=== PATIENT | female | born 1990 | race American Indian/Alaskan Native ===

== ENCOUNTER 2016-09-18 14:06 | Emergency (ER) | payer SELFPAY ==
[2016-09-18 14:26] VITALS: BP 129/78
[2016-09-18 15:27] LABS: Bacteria,Urine 2+ /HPF (Negative); Bilirubin,Urine NEG (Negative); Blood,Urine SM (Negative); Ketones,Urine 20 mg/dL (Negative); Leukocyte Esterase,Urine LG (Negative); Mucus,Urine 3+ /HPF; Nitrite,Urine NEG (Negative); Urobilinogen,Urine < 2.0 mg/dL (<2.0)
--- NOTE | 2016-09-18 18:08 | Emergency Department Report ---
ED Headache HPI - General Chief Complaint: Headache Stated Complaint: HEADACHE Time Seen by Provider: 09/18/16 18:06 Source: patient - History of Present Illness Initial Comments: Patient here complaining of headache for the last couple days. She says she took abma-suc-ardmakv medication but it didn't help much. She denies any fever or chills. Denies any nausea or vomiting. Denies any neck pain or stiffness. She said her headache comes and goes right now she doesn't have a headache and she is concerned because she missed her period and should like a test last time she saw her. Was 06/12/2016. Denies any abdominal or back pain. Denies any urinary burning frequency or urgency. Denies any vaginal bleeding or discharge. She denies any fever or chills Timing/Duration: waxing and waning Quality: achy Head Injury Location: frontal Recent Head Trauma: occasional headaches Associated Symptoms: denies: fatigue, facial pain, fever/chills, flushing, loss of consciousness, nausea/vomiting, nasal congestion, nasal drainage, numbness in legs/feet, rash, seizures, sinus infection, stiff neck, vision changes, weakness Allergies/Adverse Reactions: Allergies No Known Allergies Allergy (Verified 09/18/16 14:28) Home Medications: Ambulatory Orders Nitrofurantoin [place]/M-Cryst [Macrobid CAP] 100 mg PO Q12HR #14 capsule 09/18/16 guaiFENesin [Mucinex] 600 mg PO Q12H #10 tab.er.12h 09/18/16 ED Review of Systems ROS: Stated complaint: HEADACHE Other details as noted in HPI Comment: All other systems reviewed and negative Constitutional: denies: chills, fever ENT: denies: ear pain, throat pain, congestion Respiratory: denies: cough, shortness of breath, SOB with exertion, SOB at rest , stridor, wheezing Cardiovascular: denies: chest pain, palpitations, edema, syncope Gastrointestinal: denies: abdominal pain, nausea, vomiting Genitourinary: abnormal menses. denies: urgency, dysuria, frequency, hematuria , discharge, dyspareunia Musculoskeletal: denies: back pain, arthralgia Skin: denies: rash Neurological: denies: headache, numbness, paresthesias, confusion, abnormal gait , vertigo ED Past Medical Hx - Past Medical History Previous Medical History?: No - Surgical History Past Surgical History?: Yes Additional Surgical History: face - Family History Family history: no significant - Social History Smoking Status: Never Smoker Substance Use Type: Alcohol - Medications Home Medications: Home Medications Medication Instructions Recorded Confirmed Last Taken Type Nitrofurantoin [place]/M-Cryst 100 mg PO Q12HR #14 capsule 09/18/16 Unknown Rx [Macrobid CAP] guaiFENesin [Mucinex] 600 mg PO Q12H #10 tab.er.12h 09/18/16 Unknown Rx ED Physical Exam - General Limitations: No Limitations General appearance: alert, in no apparent distress - Head Head exam: Present: atraumatic, normocephalic, normal inspection - Expanded Head Exam Expanded Head exam: Absent: laceration, abrasion, contusion, hematoma, racoon eyes, dallas's sign, general tenderness, tenderness of temporal artery, CSF rhinorrhea , CSF otorrhea - Eye Eye exam: Present: EOMI. Absent: periorbital swelling, periorbital tenderness Pupils: Present: normal accommodation - ENT ENT exam: Present: normal exam, normal orophraynx, mucous membranes moist, normal external ear exam, other (lateral nasal mucosa congested without erythema. No frontal or maxillary sinus tenderness. Clear nasal drainage.). Absent: TM's normal bilaterally (lateral TMs congested without erythema) - Neck Neck exam: Present: normal inspection, full ROM. Absent: tenderness, meningismus, lymphadenopathy - Expanded Neck Exam Expanded Neck exam: Absent: tenderness, midline deformity, anterior neck swelling, tracheal deviation - Respiratory Respiratory exam: Present: normal lung sounds bilaterally. Absent: respiratory distress, chest wall tenderness - Cardiovascular Cardiovascular Exam: Present: regular rate, normal rhythm, normal heart sounds - GI/Abdominal GI/Abdominal exam: Present: soft, normal bowel sounds. Absent: guarding, rebound, rigid - Extremities Exam Extremities exam: Present: normal inspection, full ROM, normal capillary refill. Absent: tenderness, pedal edema, joint swelling, calf tenderness - Back Exam Back exam: Present: normal inspection, full ROM. Absent: tenderness, CVA tenderness (R), CVA tenderness (L), muscle spasm, paraspinal tenderness, vertebral tenderness, rash noted - Neurological Exam Neurological exam: Present: alert, oriented X3, normal gait, reflexes normal. Absent: motor sensory deficit - Expanded Neurological Exam Expanded Neurological exam: Absent: innattentive, memory loss-remote event, memory loss- recent event, ataxia, receptive aphasia, expressive aphasia, total aphasia, tremor, protecting the airway Patient oriented to: Present: person, place, time Speech: Present: fluid speech Cranial nerves: EOM's Intact: Normal, Gag Reflex: Normal, Nystagmus: Normal, Facial Sensation: Normal Cerebellar function: Romberg: Normal Upper motor neuron: Pronator Drift: Normal Sensory exam: Upper Extremity Light Touch: Normal, Upper Extremity Temperature: Normal, UE 2 Point Discrimination: Normal, Lower Extremity Light Touch: Normal, Lower Extremity Temperature: Normal, LE 2 Point Discrimination: Normal Motor strength exam: RUE: 5, LUE: 5, RLE: 5, LLE: 5 DTR: bicep (R): 2+, bicep (L): 2+, tricep (R): 2+, tricep (L): 2+, knee (R): 2+ , knee (L): 2+, ankle (R): 2+, ankle (L): 2+ Best Eye Response (Antony): (4) open spontaneously Best Motor Response ([place]): (6) obeys commands Best Verbal Response ([place]): (5) oriented Antony Total: 15 - Psychiatric Psychiatric exam: Present: normal affect, normal mood - Skin Skin exam: Present: warm, dry, intact, normal color. Absent: rash ED Course Vital Signs 09/18/16 14:24 Temperature 97.8 F Pulse Rate 76 Respiratory 16 Rate Blood Pressure 129/78 O2 Sat by Pulse 100 Oximetry - Reevaluation(s) Reevaluation #1: 09/18/16 18:55 Patient stable in emergency room. She Is able to tolerate oral liquids without any difficulties. She is not having any related problems. I told her that she is and her urine shows that she has some dehydration show she should drink at least 2-3 L of fluid per day. She has no nausea or vomiting. ED Medical Decision Making - Lab Data Lab Results 09/18/16 Range/Units 15:05 Urine Color Yellow (Yellow) Urine Turbidity Cloudy (Clear) Urine pH 5.0 (5.0-7.0) Ur Specific [place] 1.025 (1.003-1.030) Urine Protein 30 mg/dl (Negative) mg/dL Urine Glucose (UA) Neg (Negative) mg/dL Urine Ketones 20 (Negative) mg/dL Urine Blood Sm (Negative) Urine Nitrite Neg (Negative) Ur Reducing Substances Not Reportable Urine Bilirubin Neg (Negative) Urine Ictotest Not Reportable Urine Urobilinogen < 2.0 (<2.0) mg/dL Ur Leukocyte Esterase Lg (Negative) Urine WBC (Auto) 67.0 H (0.0-6.0) /HPF Urine RBC (Auto) 27.0 (0.0-6.0) /HPF U Epithel Cells (Auto) 17.0 H (0-13.0) /HPF Urine Bacteria (Auto) 2+ (Negative) /HPF Urine Mucus 3+ /HPF Urine HCG, Qual Positive A (Negative) - Medical Decision Making ED course: Patient here complaining of headache and nasal congestion and incidental finding for positive and sinus inflammation. also has a urinary tract infection. Pt is not having any abdominal, back pain, urinary frequency urgency or burning. She had reported that she did not have a period since June and ED test was done on her. She denies any vaginal bleeding or discharge. I also patient she will need to follow-up with [facility] doctor for her . Discussed with her that she will need to follow-up with her primary care physician regarding and sinus inflammation. She voices understanding of discharge instruction and discharged home with prescription for Macrobid and Mucinex. Critical care attestation.: If time is entered above; I have spent that time in minutes in the direct care of this critically ill patient, excluding procedure time. ED Disposition Clinical Impression: Acute inflammation of sinus Qualifiers: Sinusitis location: unspecified location Recurrence: not specified as recurrent Qualified Code(s): J01.90 - Acute sinusitis, unspecified Qualifiers: Weeks of gestation: unspecified Qualified Code(s): Z33.1 - state, incidental Headache Qualifiers: Headache type: unspecified Headache chronicity pattern: unspecified pattern Intractability: not intractable Qualified Code(s): R51 - Headache Disposition: DISCHARGED TO HOME OR SELFCARE Is pt being admited?: No Does the pt Need Aspirin: No Condition: Stable Instructions: (ED), Dehydration (ED), Sinusitis (ED), Acute Headache (ED) Additional Instructions: He is increase her fluid intake to 2-3 L a day as your urine shows that you are slightly dehydrated. start taking an vitamin and follow up with [facility] as instructed. take antibiotic as prescribed. Prescriptions: guaiFENesin [Mucinex] 600 mg PO Q12H #10 tab.er.12h Nitrofurantoin [place]/M-Cryst [Macrobid CAP] 100 mg PO Q12HR #14 capsule Referrals: PRIMARY CARE, [Primary Care Provider] - 3-5 Days Forms: Accompanied Note, Work/School Release Form(ED)
== END 2016-09-18 19:09 | disposition home or self-care (01) ==
LOC: ED 14:06
DX: J01.90 Acute sinusitis, unspecified (principal); R51 Headache; Z33.1 Pregnant state, incidental
CPT/HCPCS: 81001; 81025; 99283

== ENCOUNTER 2018-12-09 10:56 | Emergency (ER) | payer BC ==
--- NOTE | 2018-12-09 11:19 | Emergency Department Report ---
Blank Doc - Documentation Documentation: This is a 28-year-old female that presents with chest pain and SOB. PAtient is 14 weeks . This initial assessment/diagnostic orders/clinical plan/treatment(s) is/are subject to change based on patient's health status, clinical progression and re- assessment by fellow clinical providers in the ED. Further treatment and workup at subsequent clinical providers discretion. Patient/guardians urged not to elope from the ED as their condition may be serious if not clinically assessed and managed. Initial orders include: 1- Patient sent to MAIN ED for further evaluation and treatment 2- labs 3- EKG
[2018-12-09] MEDS ORDERED: TYLENOL PO ONE (11:47)
--- NOTE | 2018-12-09 11:55 | Emergency Department Report ---
ED Chest Pain HPI - General Chief Complaint: Chest Pain Stated Complaint: CHEST PAIN Time Seen by Provider: 12/09/18 11:18 Source: patient Mode of arrival: Ambulatory Limitations: No Limitations - History of Present Illness Initial Comments: 28-year-old -[place] female presents to the emergency department with a complaint of some left-sided chest pain, under her breast, since last night. It is associated with some nausea, vomiting and shortness of breath. The patient is also 14 weeks and . She goes to [facility] in [facility]. She did not take anything for her symptoms prior to presentation. She otherwise denies any past medical history. No recent travel or sick contacts at home. - Related Data Home Medications Medication Instructions Recorded Confirmed Last Taken Iron 1 tab PO DAILY 03/23/17 03/23/17 03/22/17 08:00 Tablet 1 tab PO DAILY 03/23/17 03/23/17 03/22/17 08:00 1 tab Previous Rx's Medication Instructions Recorded Last Taken Type Nitrofurantoin [place]/M-Cryst 100 mg PO Q12HR #14 capsule 09/18/16 Unknown Rx [Macrobid CAP] guaiFENesin [Mucinex] 600 mg PO Q12H #10 tab.er.12h 09/18/16 Unknown Rx Ibuprofen [Motrin 600 MG tab] 600 mg PO Q8H PRN #30 tablet 03/23/17 Unknown Rx Multivitamin with Iron 1 each PO DAILY #30 tablet 03/23/17 Unknown Rx [Multivitamins with Iron] Allergies Allergy/AdvReac Type Severity Reaction Status Date / Time No Known Allergies Allergy Verified 12/09/18 11:18 Heart Score - HEART Score History: Slightly suspicious EKG: Normal Age: < 45 Risk factors: No known risk factors Troponin: < normal limit HEART Score: 0 - Critical Actions Critical Actions: 0-3 pts:0.9-1.7%risk of adverse cardiac event.Candidate for discharge ED Review of Systems ROS: Stated complaint: CHEST PAIN Other details as noted in HPI Comment: All other systems reviewed and negative Constitutional: denies: chills, fever Eyes: denies: eye pain, vision change ENT: denies: ear pain, throat pain Respiratory: shortness of breath. denies: cough Cardiovascular: chest pain. denies: palpitations Gastrointestinal: nausea. denies: abdominal pain, vomiting Genitourinary: denies: dysuria, discharge Musculoskeletal: denies: back pain, arthralgia Skin: denies: rash, lesions Neurological: denies: headache, weakness ED Past Medical Hx - Past Medical History Previous Medical History?: No Hx Hypertension: No Hx Congestive Heart Failure: No Hx Diabetes: No Hx Deep Vein Thrombosis: No Hx Renal Disease: No Hx Sickle Cell Disease: No Hx Seizures: No Hx Asthma: No Hx COPD: No Hx HIV: No - Surgical History Past Surgical History?: Yes Additional Surgical History: face - Social History Smoking Status: Never Smoker Substance Use Type: None - Medications Home Medications: Home Medications Medication Instructions Recorded Confirmed Last Taken Type Nitrofurantoin [place]/M-Cryst 100 mg PO Q12HR #14 capsule 09/18/16 03/23/17 Unknown Rx [Macrobid CAP] guaiFENesin [Mucinex] 600 mg PO Q12H #10 tab.er.12h 09/18/16 03/23/17 Unknown Rx Ibuprofen [Motrin 600 MG tab] 600 mg PO Q8H PRN #30 tablet 03/23/17 Unknown Rx Iron 1 tab PO DAILY 03/23/17 03/23/17 03/22/17 08:00 History Multivitamin with Iron 1 each PO DAILY #30 tablet 03/23/17 Unknown Rx [Multivitamins with Iron] Tablet 1 tab PO DAILY 03/23/17 03/23/17 03/22/17 08:00 History 1 tab ED Physical Exam - General Limitations: No Limitations - Other Other exam information: GENERAL: The patient is well-developed well-nourished. HENT: Normocephalic. Atraumatic. Patient has moist mucous membranes. EYES: Extraocular motions are intact. NECK: Supple. Trachea is midline. CHEST/LUNGS: Clear to auscultation. There is no respiratory distress noted. HEART/CARDIOVASCULAR: Regular. There is mild tachycardia. There is no murmur. ABDOMEN: Abdomen is soft, nontender. Patient has normal bowel sounds. There is no abdominal distention. SKIN: Skin is warm and dry. NEURO: The patient is awake, alert, and oriented. The patient is cooperative. The patient has no focal neurologic deficits. The patient has normal speech. MUSCULOSKELETAL: There is no tenderness or deformity. There is no evidence of acute injury. ED Course Vital Signs 12/09/18 12/09/18 12/09/18 11:19 11:53 13:30 Temperature 98.1 F 98.7 F Pulse Rate 111 H 84 80 Respiratory 16 16 16 Rate Blood Pressure 102/85 Blood Pressure 110/70 114/67 [Left] O2 Sat by Pulse 99 100 100 Oximetry 12/09/18 12/09/18 14:21 15:19 Temperature Pulse Rate 83 80 Respiratory 16 Rate Blood Pressure Blood Pressure 129/74 124/76 [Left] O2 Sat by Pulse 100 Oximetry MADINA score - Madina Score Age > 65: (0) No Aspirin use within the Past 7 Days: (0) No 3 or more CAD Risk Factors: (0) No 2 or more Angina events in past 24 hrs: (1) Yes Known CAD with more than 50% Stenosis: (0) No Elevated Cardiac Markers: (0) No ST Deviation Greater than 0.5mm: (0) No MADINA Score: 1 ED Medical Decision Making - Lab Data Result diagrams: 12/09/18 11:29 12/09/18 11:29 - EKG Data -: EKG Interpreted by Me EKG shows normal: sinus rhythm, axis, intervals, QRS complexes, ST-T waves Rate: normal - EKG Data When compared to previous EKG there are: previous EKG unavailable Interpretation: normal EKG - Radiology Data Radiology results: report reviewed, image reviewed interpreted by me: Chest x-ray does not show any acute process. There are no pleural effusions, obvious pneumonia and there is no pneumothorax. CTA CHEST: HISTORY: chest pain. COMPARISON: AP chest performed the same day. TECHNIQUE: Helical CT in 1.25mm intervals following IV contrast. Pulmonary embolus protocol. Sagittal and coronal reformatted images. Rotational MIP images. FINDINGS: Contrast bolus is satisfactory. No pulmonary embolus is identified. Thyroid gland: Normal. Tracheobronchial tree: Normal. Esophagus: Normal. Heart: Normal. Pericardium: Normal. Mediastinum: There are multiple mildly enlarged lymph nodes in the right paratracheal chain, subcarinal chain, AP window chain, and bilateral hilar chains. Lymph nodes measure up to 2.5 cm in diameter. No necrotic or calcified lymph nodes. Lung Zhu: Normal. Pleural Spaces: Normal. Musculoskeletal: Normal. IMPRESSION: No evidence for pulmonary embolus. Mediastinal adenopathy as described above. Neoplastic process such as lymphoma cannot be excluded. Transcribed By: TTR Dictated By: HAJA DUBOSE JR, MD Electronically Authenticated By: HAJA DUBOSE JR, MD Signed Date/Time: 12/09/18 8912 - Medical Decision Making This patient presents to the emergency department with a complaint of some left- sided chest pain and short of breath while . Vital signs are stable. While she does not have any hypoxia she has some mild tachycardia. EKG did not show any signs of ST elevation MN, ischemia or dysrhythmia. I had a long conversation with the patient regarding risks versus benefits of getting a chest x-ray and then CT imaging done and the patient is in agreement. A chest x-ray did not show any pleural effusions, pneumonia, pneumothorax but did have a prominent perihilar region. Patient's labs were mostly unremarkable except for a slightly elevated and equivocal d-dimer. CT angiography of the chest did not show any signs of any pulmonary embolism, dissection or aneurysm, or any other acute process. Patient was given some Tylenol for discomfort with some improvement. Vital signs stable throughout her ED course. The patient has been encouraged follow-up with her primary care physician and [facility], and to return to the emergency Department with any worsening of her symptoms or any acute distress. - Differential Diagnosis pulmonary embolism, MN, costochondritis, GERD Critical Care Time: No Critical care attestation.: If time is entered above; I have spent that time in minutes in the direct care of this critically ill patient, excluding procedure time. ED Disposition Clinical Impression: Atypical chest pain, Disposition: - TO HOME OR SELFCARE Is pt being admited?: No Condition: Stable Instructions: Chest Pain (ED), Costochondritis (ED), Noncardiac Chest Pain (ED) Additional Instructions: Please follow up with your primary care physician in the next few days. Follow- up with her [facility]. Return to the emergency Department with any worsening of your symptoms or any acute distress. Referrals: [facility] [Outside] - 2-3 Days Forms: Work/School Release Form(ED) Time of Disposition: 15:07
[2018-12-09 12:07] LABS: Basophils % (Auto) 0.2 % (0.0-1.8); Eosinophils % (Auto) 0.9 % (0.0-4.3); Hemoglobin 11.9 gm/dl (10.1-14.3); Lymphocytes # (Auto) 1.2 K/mm3 (1.2-5.4); Mean Corpuscular HGB Conc 34 % (30-34); Mean Corpuscular Volume 83 fl (79-97); Monocytes # (Auto) 0.4 K/mm3 (0.0-0.8); Monocytes % (Auto) 6.4 % (0.0-7.3); Platelet Count 175 K/mm3 (140-440); Red Blood Count 4.24 M/mm3 (3.65-5.03)
[2018-12-09 12:13] LABS: Bacteria,Urine 1+ /HPF (Negative); Bilirubin,Urine NEG (Negative); Blood,Urine NEG (Negative); Color,Urine Yellow (Yellow); Mucus,Urine 2+ /HPF; Protein,Urine <15 mg/dL mg/dL (Negative); Urobilinogen,Urine < 2.0 mg/dL (<2.0)
[2018-12-09 12:19] LABS: Partial Thromboplastin Time 30.8 Sec. (24.2-36.6)
--- NOTE | 2018-12-09 12:21 | XRay Report ---
AP CHEST: HISTORY: Chest pain No comparison. The hilar regions appear prominent bilaterally. Hilar adenopathy cannot be excluded. Heart size and pulmonary vascularity are within normal limits. The lungs are clear. The bony thorax is grossly intact. IMPRESSION: Prominent mary, see above. Consider further evaluation with CT chest with contrast
[2018-12-09 13:29] LABS: Alanine Aminotransferase 11 units/L (7-56); Albumin 3.8 g/dL (3.9-5); BUN/Creatinine Ratio 13; Blood Urea Nitrogen 8 mg/dL (7-17); Calcium 9.2 mg/dL (8.4-10.2); Hemolysis Index 12
[2018-12-09] MEDS ORDERED: NACL 0.9% 500 ML 500 ML IV ONE (14:25)
--- NOTE | 2018-12-09 15:00 | Cat Scan Report ---
CTA CHEST: HISTORY: chest pain. COMPARISON: AP chest performed the same day. TECHNIQUE: Helical CT in 1.25mm intervals following IV contrast. Pulmonary embolus protocol. Sagittal and coronal reformatted images. Rotational MIP images. FINDINGS: Contrast bolus is satisfactory. No pulmonary embolus is identified. Thyroid gland: Normal. Tracheobronchial tree: Normal. Esophagus: Normal. Heart: Normal. Pericardium: Normal. Mediastinum: There are multiple mildly enlarged lymph nodes in the right paratracheal chain, subcarinal chain, AP window chain, and bilateral hilar chains. Lymph nodes measure up to 2.5 cm in diameter. No necrotic or calcified lymph nodes. Lung Zhu: Normal. Pleural Spaces: Normal. Musculoskeletal: Normal. IMPRESSION: No evidence for pulmonary embolus. Mediastinal adenopathy as described above. Neoplastic process such as lymphoma cannot be excluded.
[2018-12-09 15:19] VITALS: BP 124/76
== END 2018-12-09 15:22 | disposition home or self-care (01) ==
LOC: ED 10:56
DX: O99.511 Diseases of the respiratory system complicating pregnancy, first trimester (principal); R06.02 Shortness of breath; R07.89 Other chest pain; O21.9 Vomiting of pregnancy, unspecified; Z3A.14 14 weeks gestation of pregnancy
CPT/HCPCS: 36415; 71045; 71275; 80053; 81001; 84484; 85025; 85379; 85610; 85730; 93005; 93010; 99285; J7040; Q9967

== ENCOUNTER 2019-05-28 16:36 | Outpatient (CLI) | payer BC ==
[2019-05-28 17:06] VITALS: BP 118/70
[2019-05-28] MEDS ORDERED: ePHEDrine SULFATE 50 MG/1 ML INJ IV PRN (19:04)
[2019-05-28] MEDS ORDERED: TERBUTALINE 1 MG/1 ML INJ SUB-Q PRN (19:04)
[2019-05-28] MEDS ORDERED: fentaNYL 100 MCG/2 ML INJ IV PRN (19:04)
[2019-05-28] MEDS ORDERED: MINERAL OIL 30 ML ORAL LIQD PO PRN (19:04)
[2019-05-28] MEDS ORDERED: LIDOCAINE (2%) 20 MG/1 ML VIAL 20 ML MDV INFILTRATI ONE (19:04)
[2019-05-28] MEDS ORDERED: NalbUPHINE 10 MG/1 ML INJ IV PRN (19:04)
[2019-05-28] MEDS ORDERED: TERBUTALINE 1 MG/1 ML INJ IVP PRN (19:04)
--- NOTE | 2019-05-28 19:15 | Ultrasound Report ---
Limited OB ultrasound for biophysical profile FINDINGS: Single fetus is identified in transverse presentation with the head maternal left. Amniotic fluid volume is borderline low at 9.6 cm. breathing, movement, tone and qualitative amniotic f luid volume all score 2/2 for a total score of 8/8. heart rate is 149 bpm. Signer Name: David Hooks MD Signed: 05/28/2019 7:10 PM Workstation Name: [id number]
--- NOTE | 2019-05-28 19:15 | Ultrasound Report ---
Limited OB ultrasound for biophysical profile FINDINGS: Single fetus is identified in transverse presentation with the head maternal left. Amniotic fluid volume is borderline low at 9.6 cm. breathing, movement, tone and qualitative amniotic f luid volume all score 2/2 for a total score of 8/8. heart rate is 149 bpm. Signer Name: David Hooks MD Signed: 05/28/2019 7:10 PM Workstation Name: [facility] [id number]
[2019-05-28] MEDS ORDERED: OXYTOCIN DRIP 30 UNITS/500 ML BAG IV SCH (20:00)
[2019-05-28] MEDS ORDERED: LACTATED RINGERS 1,000 ML IV SCH (20:00)
[2019-05-28] MEDS ORDERED: OXYTOCIN 20 UNIT/1000ML DRIP 20 UNITS/1,000 ML BAG IV SCH (20:00)
== END 2019-05-28 20:00 | disposition home or self-care (01) ==
LOC: TRG 16:36
PROVIDERS: ATTEND Obstetrics & Gynecology
DX: O47.1 False labor at or after 37 completed weeks of gestation (principal); Z3A.39 39 weeks gestation of pregnancy
CPT/HCPCS: 76815; 76819

== ENCOUNTER 2019-05-30 07:21 | Inpatient (IN) | payer BC ==
[2019-05-30] MEDS ORDERED: OXYTOCIN 20 UNIT/1000ML DRIP 20 UNITS/1,000 ML BAG IV SCH ×2 (08:00→18:00)
[2019-05-30] MEDS ORDERED: METOCLOPRAMIDE 10 MG/2 ML INJ IV NR (08:00)
[2019-05-30] MEDS ORDERED: FAMOTIDINE 20 MG/2 ML INJ IV NR (08:00)
[2019-05-30] MEDS ORDERED: BICITRA ORAL LIQD 30ML PO NR (08:00)
[2019-05-30] MEDS ORDERED: ceFAZolin/Water 2 GM/20 ML 2 GM/20 ML SYRINGE IV NR (08:00)
[2019-05-30] MEDS: LACTATED RINGERS 1,000 ML IV SCH ×2 (09:20→15:18)
[2019-05-30 09:53] LABS: Basophils % (Auto) 0.2 % (0.0-1.8); Eosinophils # (Auto) 0.1 K/mm3 (0.0-0.4); Hematocrit 34.3 % (30.3-42.9); Hemoglobin 11.4 gm/dl (10.1-14.3); Lymphocytes # (Auto) 1.4 K/mm3 (1.2-5.4); Lymphocytes % (Auto) 19.6 % (13.4-35.0); Mean Corpuscular HGB Conc 33 % (30-34); Mean Corpuscular Volume 83 fl (79-97); Monocytes # (Auto) 0.5 K/mm3 (0.0-0.8); Monocytes % (Auto) 6.8 % (0.0-7.3); Platelet Count 168 K/mm3 (140-440); Red Blood Count 4.11 M/mm3 (3.65-5.03); Red Cell Distribution Width 16.3 % (13.2-15.2)
--- NOTE | 2019-05-30 12:22 | History and Physical Report ---
History of Present Illness Date of examination: 05/30/19 Date of admission: 05/30/19 07:21 Chief complaint: Placenta previa History of present illness: Pt is a 28yo BF EDC 06/04/19; EGA 39 2/7 weeks presents to L&D for Primary C Section due to placenta previa. She received late care at [facility] since 24 weeks and course has been unremarkable except for placenta previa. records are available and GBS is Negative. Past History Past Medical History: no pertinent history Past Surgical History: other (facial surgery) Family/Genetic History: none Social history: no significant social history, - Obstetrical History Expected Date of Delivery: 06/04/19 Actual Gestation: 39 Week(s) 2 Day(s) : 2 Medications and Allergies Allergies Allergy/AdvReac Type Severity Reaction Status Date / Time No Known Allergies Allergy Verified 05/30/19 07:48 Home Medications Medication Instructions Recorded Confirmed Last Taken Type Iron 1 tab PO DAILY 03/23/17 05/30/19 05/27/19 09:00 History Vitamin 325 tab PO DAILY 05/30/19 05/30/19 05/28/19 09:00 History Active Meds: Active Medications Citric Acid/Sodium Citrate (Bicitra) 30 ml PO ONCE NR Stop: 05/30/19 16:00 Famotidine (Pepcid) 20 mg IV ONCE NR Stop: 05/30/19 16:00 Oxytocin/Sodium Chloride (Pitocin/Ns 20 Unit/1000ml Drip) 20 units in 1,000 mls @ 0 mls/hr IV TITR SULTANA Lactated Ringer's (Lactated Ringers) 1,000 mls @ 2,250 mls/hr IV PREOP SULTANA Stop: 05/31/19 08:27 Last Admin: 05/30/19 09:20 Dose: 2,250 mls/hr Documented by: Cefazolin Sodium (Ancef/Sterile Water 2 Gm/20 Ml) 2 gm in 20 mls @ 80 mls/hr IV PREOP NR; Protocol Stop: 05/30/19 16:00 Metoclopramide HCl (Reglan) 10 mg IV ONCE NR Stop: 05/30/19 16:00 Review of Systems All systems: negative - Vital Signs Vital signs: Vital Signs Pulse BP 89 123/74 05/30/19 08:13 05/30/19 08:13 Temp Pulse Resp BP Pulse Ox 98.8 F 89 123/74 05/30/19 08:35 05/30/19 08:13 05/30/19 08:13 - Physical Exam Breasts: Positive: deferred Cardiovascular: Regular rate Lungs: Positive: Clear to auscultation Abdomen: Positive: normal appearance Genitourinary (Female): Positive: normal external genitalia Vagina: Positive: normal moisture Uterus: Positive: enlarged Extremities: Positive: normal - Obstetrical FHR: category 1 Uterine Contraction Monitor Mode: External Uterine Contraction Pattern: Irregular Uterine Contraction Intensity: Mild Results Result Diagrams: 05/30/19 09:20 Abnormal lab results 05/30/19 Range/Units 09:20 RDW 16.3 H (13.2-15.2) % Seg Neutrophils % 72.4 H (40.0-70.0) % All other labs normal. Ultrasound: report reviewed Assessment and Plan - Patient Problems (1) 39 weeks gestation of Onset Date: 05/30/19 Current Visit: Yes Status: Acute Plan to address problem: A: IUP @ 39 2/7 weeks Placenta previa P: Admit to L&D for a Primary C Section (2) Placenta previa affecting delivery Onset Date: 05/30/19 Current Visit: Yes Status: Acute
--- NOTE | 2019-05-30 15:33 | Anesthesia Consultation ---
Anesthesia Consult and Med Hx Date of service: 05/30/19 - Airway Anesthetic Teeth Evaluation: Good ROM Head & Neck: Adequate Mental/Hyoid Distance: Adequate Mallampati Class: Class II Intubation Access Assessment: Probably Good - Pulmonary Exam CTA: Yes - Cardiac Exam Cardiac Exam: RRR - Pre-Operative Health Status ASA Pre-Surgery Classification: ASA2 Proposed Anesthetic Plan: Spinal - Pulmonary Hx Asthma: No COPD: No Hx Pneumonia: No - Cardiovascular System Hx Hypertension: No - Central Nervous System Hx Seizures: No Hx Psychiatric Problems: No - Endocrine Hx Renal Disease: No Hx End Stage Renal Disease: No Hx Hypothyroidism: No Hx Hyperthyroidism: No - Hematic Hx Anemia: No Hx Sickle Cell Disease: No - Other Systems Hx Alcohol Use: No
--- NOTE | 2019-05-30 15:33 | Anesthesia Day of Surgery ---
Anesthesia Day of Surgery - Day of Surgery Patient Examined: Yes Patient H&P Reviewed: Yes Patient is NPO: Yes
[2019-05-30] MEDS ORDERED: SODIUM CHLORIDE 0.9% IRR 1,500 ML BOTTLE IR ONE (16:50)
[2019-05-30] MEDS ORDERED: WATER FOR IRRIG STERILE 1,500 ML BOTTLE IR ONE (16:50)
[2019-05-30] MEDS ORDERED: PHENYLEPHRINE/NS 1,000 MCG/10 ML SYRINGE (OR USE) IV ONE (16:51)
[2019-05-30] MEDS ORDERED: BUPIVACAINE/PF (0.5%) 5 MG/1 ML 30 ML VIAL INFILTRATI ONE (16:51)
[2019-05-30] MEDS ORDERED: KETOROLAC 30 MG/1 ML INJ ONE (16:51)
[2019-05-30] MEDS ORDERED: OXYTOCIN 10 UNIT/1 ML INJ ONE (16:51)
--- NOTE | 2019-05-30 17:27 | Operative Report ---
Operative Report Operative Report: Date of procedure: 05/30/2019 Pre-operative diagnosis: 1. Intrauterine at 39 2/7 weeks 2. Breech presentation 3. Placenta previa Post-operative diagnosis: Same Procedure name(s): Primary low transverse section Surgeon: Boston Kiser MD Photostat Operator: None Anesthesia: Spinal/Epidural anesthesia by Jg Osorio CRNA EBL: 700 mL's Findings: A 4924 gm male infant Apgars 7 at 1 minute 9 at 5 minutes. Phil breech presentation. 1+ meconium fluid. Normal uterus. Normal tubes and ovaries bilaterally. Procedure: After the patient was prepped and draped in usual sterile fashion, and after satisfactory level of spinal anesthesia was obtained, the skin knife was used to make a transverse skin incision. The incision was incised down to layer of the fascia, which was nicked in the midline and extended laterally using the Bovie cautery. The rectus muscles were dissected off the rectus fascia both superiorly and inferiorly. The rectus bellies in the midline, and the peritoneum was entered under direct visualization. The peritoneal incision was extended superiorly and inferiorly. A bladder flap was created and the bladder blade was then placed. The uterus was scored in a curvilinear linear fashion, entered in the midline revealing 1+ mecomium amnio tic fluid. The infant's Phil breech was delivered onto the surgical field, followed by the rest of the 's body, and the oropharynx and nasopharynx were bulb suctioned. The cord was doubly clamped and cut and the was handed to the awaiting respiratory team. Cord blood was then obtained. The placenta was manually removed from the uterus, and the uterus removed from its normal anatomical position. After gentle uterine lavage, the incision was inspected and found to be without extensions. It was then closed in 2 layers using 0 Vicryl suture in a running interlocking fashion, the second layer imbricating the first. After good hemostasis was achieved, copious amounts or irrigation was performed, and the gutters were suctioned free of blood and blood clots. The uterus was then returned to its normal anatomical position, and the peritoneum was re-approximated using 3-0 Vicryl suture in a running interlocking fashion, and then the rectus muscles were re-approximated using 3-0 Vicryl suture in a [id number] configuration. The fascia was then re-approximated using 0 Vicryl suture in running interlocking fashion. The subcutaneous layer was made hemostatic using Bovie cautery, and the skin edges re-approximated using 4-0 Vicryl suture in a sub-cuticular fashion. Patient tolerated the procedure well was transported to recovery in stable condition.
[2019-05-30] MEDS ORDERED: NALOXONE 0.4 MG/1 ML INJ IV PRN (17:36)
[2019-05-30] MEDS ORDERED: PROMETHAZINE 25 MG RECT SUPP PR PRN (17:36)
[2019-05-30] MEDS ORDERED: WITCH HAZEL/ GLYCERIN PAD TP PRN (17:36)
[2019-05-30] MEDS ORDERED: ACETAMINOPHEN 325 MG TAB PO PRN (17:36)
[2019-05-30] MEDS ORDERED: SENNOSIDES 8.6 MG TAB PO PRN (17:36)
[2019-05-30] MEDS ORDERED: ONDANSETRON 4 MG/2 ML INJ IV PRN (17:36)
[2019-05-30] MEDS ORDERED: LANOLIN/ZINC/DIMETHICONE (LANSINOH) 7 GM TP PRN (17:36)
[2019-05-30] MEDS ORDERED: MAGNESIUM HYDROXIDE (MOM) ORAL LIQD UDC PO PRN (17:36)
--- NOTE | 2019-05-30 17:46 | Post Anesthesia Evaluation ---
- Post Anesthesia Evaluation Patient Participated: Yes Airway Patent: Yes Stable Respiratory Function: Yes Nausea/Vomiting: No Temp > 96.8F: Yes Pain Manageable: Yes Adequeate Hydration: Yes Anesthesia Complications: No Block Receding Appropriately: Yes
[2019-05-30] MEDS ORDERED: D5W/LACTATED RINGERS 1,000 ML IV SCH (18:00)
[2019-05-30] MEDS: KETOROLAC 30 MG/1 ML INJ IV PRN (21:04)
[2019-05-30] MEDS: ceFAZolin/NS 1 GM/50 ML 1 GM/50 ML BAG IV SCH (22:12)
[2019-05-31] MEDS: HYDROcodone/ACETAMINOPHEN 5-325 MG TAB PO PRN ×2 (00:18→22:00)
[2019-05-31 04:47] LABS: Hematocrit 33.1 % (30.3-42.9)
[2019-05-31] MEDS: KETOROLAC 30 MG/1 ML INJ IV PRN ×2 (04:48→12:17)
[2019-05-31] MEDS: ceFAZolin/NS 1 GM/50 ML 1 GM/50 ML BAG IV SCH (06:16)
--- NOTE | 2019-05-31 08:46 | Progress Note ---
Assessment and Plan - Patient Problems (1) 39 weeks gestation of Onset Date: 05/30/19 Current Visit: Yes Status: Resolved (2) Placenta previa affecting delivery Onset Date: 05/30/19 Current Visit: Yes Status: Resolved (3) Status post Onset Date: 05/31/19 Current Visit: Yes Status: Resolved Plan to address problem: A: S/P C Section - POD #1 Doing well P: Continue RPOC Anticipate discharge in 24-48hrs Subjective - Subjective Date of service: 05/31/19 Principal diagnosis: s/p C Section - POD #1 Interval history: Pt is feeling well without complaints. Bleeding improved. Patient reports: appetite normal, voiding normally, pain well controlled, ambulating normally, no dizzy ambulation, no flatus, no nauseated [place]: doing well, nursing well, bottle feeding Objective - Vital Signs Latest vital signs: Vital Signs Temp Pulse Resp BP BP Pulse Ox 05/31/19 05:18 18 05/31/19 04:48 18 05/31/19 01:18 18 05/31/19 00:18 18 05/31/19 00:00 98.4 F 84 20 106/75 100 05/30/19 21:34 18 05/30/19 21:04 18 05/30/19 19:59 98.3 F 77 18 112/77 98 05/30/19 19:00 80 16 98/60 99 05/30/19 18:45 76 14 100/63 99 05/30/19 18:30 78 16 102/61 99 05/30/19 18:15 75 18 98/56 99 05/30/19 18:00 84 19 100/57 99 05/30/19 17:55 84 15 99/54 99 05/30/19 17:50 97.9 F 87 20 94/55 99 05/30/19 15:30 98.8 F 05/30/19 14:30 92 H 124/72 Intake and Output 05/30/19 05/31/19 05/31/19 22:59 06:59 14:59 Intake Total 650 Output Total 600 Balance 50 Intake: IV 650 ANCEF/NS 1 GM/50 ML 1 gm 50 In 50 ml @ 100 mls/hr IV Q8H [facility] Rx#:[id number] Output: Urine 600 Uretheral ([place]) 200 Other: Estimated Blood Loss 700 - Exam Breasts: Present: deferred Abdomen: Present: normal appearance, soft Uterus: Present: normal, firm, fundal height below umbilicus Extremities: Present: normal Incision: Present: normal, dry, intact, dressed - Labs Labs: Abnormal lab results 05/30/19 Range/Units 09:20 RDW 16.3 H (13.2-15.2) % Seg Neutrophils % 72.4 H (40.0-70.0) % Laboratory Tests 05/30/19 05/30/19 05/30/19 09:20 09:20 09:20 WBC 6.9 RBC 4.11 Hgb 11.4 Hct 34.3 MCV 83 MCH 28 MCHC 33 RDW 16.3 H Plt Count 168 Lymph % (Auto) 19.6 Patrick % (Auto) 6.8 Eos % (Auto) 1.0 Baso % (Auto) 0.2 Lymph # 1.4 Patrick # 0.5 Eos # 0.1 Baso # 0.0 Seg Neutrophils % 72.4 H Seg Neutrophils # 5.0 Syphilis IgG Antibody Non-reactive Blood Type O POSITIVE Antibody Screen Negative 05/31/19 04:25 WBC RBC Hgb 11.0 Hct 33.1 MCV MCH MCHC RDW Plt Count Lymph % (Auto) Patrick % (Auto) Eos % (Auto) Baso % (Auto) Lymph # Patrick # Eos # Baso # Seg Neutrophils % Seg Neutrophils # Syphilis IgG Antibody Blood Type Antibody Screen
[2019-05-31] MEDS: SIMETHICONE 80 MG CHEW TAB PO PRN (10:30)
[2019-05-31] MEDS: PRENATAL VIT27-FE FUMARATE-FOLIC ACID VIT TAB PO SCH (10:30)
[2019-05-31] MEDS: FERROUS SULFATE 325 MG TAB PO SCH (10:30)
[2019-05-31] MEDS: oxyCODONE /ACETAMINOPHEN 5-325MG TAB PO PRN (12:37)
[2019-05-31] MEDS ORDERED: TETANUS,DIPH,PERTUSS(ACELL) VACCINE 0.5 ML SYRINGE IM ONE (17:38)
[2019-05-31] MEDS ORDERED: MEASLES, MUMPS & RUBELLA 12,500 UNIT/0.5 ML VACCINE SUB-Q ONE (17:38)
[2019-05-31] MEDS: IBUPROFEN 800 MG TAB PO PRN ×2 (18:33→23:19)
[2019-06-01] MEDS: HYDROcodone/ACETAMINOPHEN 5-325 MG TAB PO PRN ×2 (03:05→13:34)
[2019-06-01] MEDS: IBUPROFEN 800 MG TAB PO PRN ×2 (04:51→16:32)
[2019-06-01] MEDS ORDERED: TETANUS,DIPH,PERTUSS(ACELL) VACCINE 0.5 ML SYRINGE IM ONE (06:00)
[2019-06-01] MEDS: PRENATAL VIT27-FE FUMARATE-FOLIC ACID VIT TAB PO SCH (09:11)
[2019-06-01] MEDS: FERROUS SULFATE 325 MG TAB PO SCH (09:11)
[2019-06-01] MEDS: SIMETHICONE 80 MG CHEW TAB PO PRN (09:11)
--- NOTE | 2019-06-01 09:18 | Progress Note ---
Assessment and Plan - Patient Problems (1) 39 weeks gestation of Onset Date: 05/30/19 Current Visit: Yes Status: Resolved (2) Placenta previa affecting delivery Onset Date: 05/30/19 Current Visit: Yes Status: Resolved (3) Status post Onset Date: 05/31/19 Current Visit: Yes Status: Resolved Plan to address problem: A: S/P C Section - POD #2 Doing well P: Continue RPOC Anticipate discharge in 24hrs Subjective - Subjective Date of service: 06/01/19 Principal diagnosis: s/p C Section - POD #2 Interval history: Pt is feeling well without complaints. She is tolerating a reg diet without nausea or vomiting, ambulating and voiding without difficulty. Patient reports: appetite normal, voiding normally, pain well controlled, flatus, ambulating normally, no dizzy ambulation, no nauseated [place]: doing well, bottle feeding Objective - Vital Signs Latest vital signs: Vital Signs Temp Pulse Resp BP Pulse Ox 06/01/19 04:51 18 06/01/19 03:05 18 06/01/19 02:23 97.6 F 86 18 110/67 99 05/31/19 23:19 18 05/31/19 22:00 18 05/31/19 17:26 97.4 F L 88 18 114/62 97 Intake and Output 05/31/19 06/01/19 06/01/19 22:59 06:59 14:59 Intake Total 880 Output Total 900 Balance -20 Intake: Oral 300 Intake, Free Water 580 Output: Urine 900 Void 900 Other: Total, Intake Amount 300 Total, Output Amount 400 # Voids Void 2 - Exam Breasts: Present: deferred Abdomen: Present: normal appearance, soft Uterus: Present: normal, firm, fundal height below umbilicus Extremities: Present: normal Incision: Present: normal, dry, intact, dressed
[2019-06-01] MEDS ORDERED: FLU VACC QUAD 2019-20 (3 YR UP)/PF 60 MCG/0.5 ML SYRINGE IM ONE (12:00)
[2019-06-01] MEDS: oxyCODONE /ACETAMINOPHEN 5-325MG TAB PO PRN (21:53)
[2019-06-02] MEDS: oxyCODONE /ACETAMINOPHEN 5-325MG TAB PO PRN (06:01)
[2019-06-02] MEDS: IBUPROFEN 800 MG TAB PO PRN (10:08)
[2019-06-02] MEDS: PRENATAL VIT27-FE FUMARATE-FOLIC ACID VIT TAB PO SCH (10:08)
[2019-06-02] MEDS: FERROUS SULFATE 325 MG TAB PO SCH (10:09)
--- NOTE | 2019-06-02 11:09 | Progress Note ---
Assessment and Plan - Patient Problems (1) 39 weeks gestation of Onset Date: 05/30/19 Current Visit: Yes Status: Resolved (2) Placenta previa affecting delivery Onset Date: 05/30/19 Current Visit: Yes Status: Resolved (3) Status post Onset Date: 05/31/19 Current Visit: Yes Status: Resolved Plan to address problem: A: S/P C Section - POD #3 Doing well P: May go home today. Subjective - Subjective Date of service: 06/02/19 Principal diagnosis: s/p C Section - POD #3 Interval history: Pt is feeling well without complaints. She is tolerating a reg diet without nausea or vomiting, ambulating and voiding without difficulty. Patient reports: appetite normal, voiding normally, pain well controlled, flatus, ambulating normally, no dizzy ambulation, no nauseated [place]: doing well, bottle feeding Objective - Vital Signs Latest vital signs: Vital Signs Temp Pulse Resp BP BP Pulse Ox 06/02/19 08:38 97.6 F 82 16 124/73 98 06/02/19 00:55 97.9 F 84 20 107/65 97 06/01/19 16:18 97.3 F L 81 20 Intake and Output 06/01/19 06/02/19 06/02/19 22:59 06:59 14:59 Intake Total 120 240 Balance 120 240 Intake: Oral 120 240 Other: Total, Intake Amount 120 240 # Voids Void 1 1 - Exam Abdomen: Present: normal appearance, soft Uterus: Present: normal, firm, fundal height below umbilicus Extremities: Present: normal Incision: Present: normal, dry, intact
--- NOTE | 2019-06-02 11:10 | Discharge Summary ---
Providers - Providers Date of Admission: 05/30/19 07:21 Date of discharge: 06/02/19 Attending physician: HAJA MCGOVERN Primary care physician: HAJA MCGOVERN Hospitalization Reason for admission: section, IUP at term, other (Placenta previa) Delivery: Procedure: section, primary low transverse Episiotomy: none Laceration: none Incision: normal, dry, intact Other procedures: none complications: none Discharge diagnosis: IUP at term delivered [place] baby: male Hospital course: Pt is a 28yo BF EDC 06/04/19; EGA 39 2/7 weeks who presented to L&D for Primary C Section due to placenta previa. She received late care at [facility] since 24 weeks and course has been unremarkable except for placenta previa. She underwent an uncomplicated Primary C Section, and post operative course was uneventful. By POD #2 she was tolerating a reg diet without nausea or vomiting, ambulating and voiding without difficulty. She was therefore discharged to home on POD #3 in stable condition. Condition at discharge: Good Disposition: [id number] TO HOME OR SELFCARE - Discharge Diagnoses (1) 39 weeks gestation of Status: Resolved (2) Placenta previa affecting delivery Status: Resolved (3) Status post Status: Resolved Plan - Discharge Medications Prescriptions: Ferrous Sulfate [Feosol 325 MG tab] 325 mg PO BID #60 tablet Ibuprofen [Motrin 800 MG tab] 800 mg PO Q6H PRN #30 tablet PRN Reason: Pain, Mild (1-3) oxyCODONE /ACETAMINOPHEN [Percocet 5/325 mg] 1 tab PO Q6H PRN #30 tablet PRN Reason: Pain, Moderate (4-6) Vit-Fe Fumar-FA [ Vitamin] 1 each PO QDAY #30 tablet - Provider Discharge Summary Activity: routine, no sex for 6 weeks, no heavy lifting 4 weeks, no strenuous exercise Diet: routine Instructions: routine Additional instructions: [] Smoking cessation referral if applicable(refer to patient education folder for contact #) [] Refer to [facility] Booklet Call your doctor immediately for: * Fever > 100.5 * Heavy vaginal bleeding ( >1 pad per hour) * Severe persistent headache * Shortness of breath * Reddened, hot, painful area to leg or breast * Drainage or odor from incision. * Keep incision clean and dry at all times and follow doctor's instructions regarding bathing/showering - Follow up plan Follow up: HAJA MCGOVERN MD [Primary Care Provider] - 14 Days HARSH VIVEROS CNM [Advanced Practice Nurse] - 14 Days
[2019-06-02 15:22] VITALS: BP 110/71
== END 2019-06-02 16:33 | disposition home or self-care (01) | DRG 787 ==
LOC: LD 07:21 → OB 20:00
PROVIDERS: ADMIT Obstetrics & Gynecology; ATTEND Obstetrics & Gynecology
PROC: 3E0234Z Introduction of Serum, Toxoid and Vaccine into Muscle, Percutaneous Approach (ICD-10-PCS; 2011-05-31)
PROC: 10D00Z1 Extraction of Products of Conception, Low, Open Approach (ICD-10-PCS; principal; 2019-05-30)
PROC: 3E0234Z Introduction of Serum, Toxoid and Vaccine into Muscle, Percutaneous Approach (ICD-10-PCS; 2019-06-01)
DX: O32.1XX0 Maternal care for breech presentation, not applicable or unspecified (principal); O44.03 Complete placenta previa NOS or without hemorrhage, third trimester; O77.0 Labor and delivery complicated by meconium in amniotic fluid; Z23 Encounter for immunization; Z37.0 Single live birth; Z3A.39 39 weeks gestation of pregnancy; Z79.899 Other long term (current) drug therapy
CPT/HCPCS: 36415; 85014; 85018; 85025; 86592; 86850; 86900; 86901; 90471; 90686; 90715; G0378; J0690; J1885; J2370; J2590; J2765; J7120; J7121